=== PATIENT | female | born 1970 | race Caucasian/White ===

== ENCOUNTER 2016-07-13 18:12 | Emergency (ER) | payer OTHER ==
--- NOTE | 2016-07-13 18:39 | EDPHY ---
H & P Time Seen by Provider: 07/13/16 18:33 HPI/ROS: Chief complaint. Left ovary pain HPI. 46-year-old female with left lower quadrant pain for 1 month. She was treated for UTI 1 month ago but has continued to have discomfort and pain and pressure to the left lower quadrant. Several days ago it worsened and so she started Cipro thinking it was another urinary tract infection. However the pain has continued. She was seen by her PCP this afternoon and had an outpatient CT scan which showed a left ovarian cyst or mass and there was some concern for torsion. She had lab work that was performed and on my review was normal. A urinalysis was not performed. She has had no previous similar symptoms. Her last menstrual period was approximately 3 months ago. Patient had a vaginal exam earlier today at her physician's office and showed left adnexal tenderness ROS Constitutional. no fever/chills, no weakness Eyes. no problems with vision ENT. no sore throat, no nasal drainage Cardiovascular. no chest pain Respiratory. no shortness of breath, no cough Abdominal. Left lower quadrant abdominal pain . no problems urinating MS. no calf pain/swelling, no neck/back pain, no joint pain Skin. no rash Lymph. no swollen glands Neuro. no headache, no dizziness, no difficulty walking or with speech Past Medical/Surgical History: Maile-Alexander tear, pneumonia Social History: , nonsmoker, no alcohol Smoking Status: Never smoked Physical Exam: General Appearance: Alert well-developed female moderate distress vital signs are stable Eyes: Pupils equal and round no pallor or injection. ENT, Mouth: Mucous membranes are moist. Respiratory: There are no retractions, lungs are clear to auscultation. Cardiovascular: Regular rate and rhythm. Gastrointestinal: Abdomen is soft with suprapubic and left lower quadrant tenderness. No masses. Neurological: Awake and alert, sensory and motor exams grossly normal. Skin: Warm and dry, no rashes. Musculoskeletal: Neck is supple nontender. Extremities symmetrical, full range of motion. Psychiatric: Patient is oriented X 3, there is no agitation. Constitutional: Initial Vital Signs Temperature (C) 36.6 C 07/13/16 18:15 Heart Rate 62 07/13/16 18:15 Respiratory Rate 14 07/13/16 18:15 Blood Pressure 138/81 H 07/13/16 18:15 O2 Sat (%) 94 07/13/16 18:15 O2 Delivery Mode Room Air Allergies/Adverse Reactions: Sulfa (Sulfonamide Antibiotics) Allergy (Severe, Verified 07/13/16 18:15) Home Medications: Medication Instructions Recorded Albuterol Hfa Anes Only [Proair 2 puffs IH QID PRN 12/24/12 Hfa Anes Only] Herbals/Supplements -Info Only 1 tab PO DAILY 12/24/12 Magnesium 250 mg PO DAILY 12/24/12 Multivitamins [Tab-A-Juani] 1 tab PO DAILY 12/24/12 [place]-3 Fatty Acids [Fish Oil 1000 1,000 mg PO DAILY 12/24/12 mg (OTC)] Pharmacy Completed 12/24/12 12/24/12 Reconciled 12/24/12 12/24/12 Hydrocodone/APAP 5/325 [[place] 1 each PO Q4-6PRN PRN #14 tab 07/13/16 5/325 (*)] Ondansetron Odt [Zofran Odt] 4 mg PO Q4PRN PRN #4 tab 07/13/16 Medical Decision Making - Diagnostics Imaging: Ultrasound of the pelvis tonight reviewed by me and discussed with Dr. Vences shows a 4 x 3 cm left ovarian cyst. Good color flow no evidence for torsion. Uterus and right ovary are normal The patient had an out patient CT of the abdomen elsewhere today that was loaded in our system. I reviewed this Dr. Vences and the only findings are the ovarian cyst Procedures: IV normal saline. Morphine for pain. Zofran for nausea ED Course/Re-evaluation: On re-evaluation at 8:20 a.m. patient is stable and pain-free. The patient and her and I discussed imaging and lab results. We discussed treatment plan including criteria for return importance of follow-up and further evaluation. They expressed understanding and agreement Differential Diagnosis: I considered ectopic , ovarian torsion, ovarian cyst, urinary tract infection - Data Points Laboratory Results: 07/13/16 07/13/16 07/13/16 19:50 19:50 19:20 Beta HCG, Qual NEGATIVE Urine Color YELLOW Urine Appearance CLEAR Urine pH 6.0 (5.0-7.5) Ur Specific [place] 1.009 (1.002-1.030) Urine Protein NEGATIVE (NEGATIVE) Urine Ketones TRACE H (NEGATIVE) Urine Blood NEGATIVE (NEGATIVE) Urine Nitrate NEGATIVE (NEGATIVE) Urine Bilirubin NEGATIVE (NEGATIVE) Urine Urobilinogen NEGATIVE EU EU (0.2-1.0) Ur Leukocyte Esterase NEGATIVE (NEGATIVE) Urine RBC 1-3 /hpf /hpf (0-3) Urine WBC 1-3 /hpf /hpf (0-3) Ur Epithelial Cells NONE SEEN /lpf /lpf (NONE-1+) Urine Mucus TRACE /lpf /lpf (NONE-1+) Ur Culture Indicated? NOT INDICATED (NI) Urine Glucose NEGATIVE (NEGATIVE) Urine Test NEGATIVE Medications Given: Discontinued Medications Sodium Chloride (Ns) 1,000 mls @ 0 mls/hr IV ONCE ONE PRN Reason: Wide Open Stop: 07/13/16 18:58 Last Admin: 07/13/16 19:24 Dose: 1,000 mls Morphine Sulfate (Morphine) 4 mg IVP EDNOW ONE Stop: 07/13/16 18:59 Last Admin: 07/13/16 19:25 Dose: 2 mg Ondansetron HCl (Zofran) 4 mg IVP EDNOW ONE Stop: 07/13/16 18:58 Last Admin: 07/13/16 19:24 Dose: 4 mg Departure - Departure Disposition: Home, Routine, Self-Care Clinical Impression: Left ovarian cyst Condition: Good Instructions: Ovarian Cyst (ED) Additional Instructions: Heat to sore area of low abdomen. Ibuprofen 400 mg every 6 hours. Hydrocodone we in addition as needed for pain. Zofran if needed for nausea. Return for worsening pain, fever. Follow up with Dr. Cee next week for recheck and further evaluation and further ultrasound evaluation Referrals: Maria Guadalupe Cee MD [Primary Care Provider] - 2-3 days, call for appt. Prescriptions: Hydrocodone/APAP 5/325 [[place] 5/325 (*)] 1 each PO Q4-6PRN PRN #14 tab PRN Reason: Pain, Moderate Ondansetron Odt [Zofran Odt] 4 mg PO Q4PRN PRN #4 tab PRN Reason: Nausea/Vomiting, Use 1st
[2016-07-13] MEDS ORDERED: NS 1,000 ML IV ONE (18:57)
[2016-07-13] MEDS ORDERED: ONDANSETRON 4 MG/2 ML VIAL IVP ONE (18:57)
[2016-07-13 19:57] LABS: COLOR YELLOW; LEUKOCYTE ESTERASE,URINE NEGATIVE (NEGATIVE); NITRITE,URINE NEGATIVE (NEGATIVE)
[2016-07-13 20:02] LABS: MUCUS TRACE /lpf (NONE-1+)
[2016-07-13] MEDS ORDERED: HYDROCOD/APAP 5/325 PREPACK#6 BTL TAKEHOME ONE (20:36)
[2016-07-13] MEDS ORDERED: ONDANSETRON 4MG PREPACK#2 BTL TAKEHOME ONE (20:36)
[2016-07-13 20:57] VITALS: BP 100/57; PULSE 56; RESP 16; TEMP 98.4; O2SAT 95
== END 2016-07-13 20:57 | disposition home or self-care (01) ==
DX: N83.202 Unspecified ovarian cyst, left side (principal)
CPT/HCPCS: 96374; J2405

== ENCOUNTER → 2016-08-03 | Outpatient (CLI) | payer OTHER | LOC: BMCIMAGING 11:36 | PROVIDERS: ATTEND Internal Medicine | DX: N83.202 Unspecified ovarian cyst, left side (principal) ==

== ENCOUNTER → 2016-08-16 | Outpatient (CLI) | payer OTHER | LOC: BMCIMAGING 08:22 | DX: Z12.31 Encounter for screening mammogram for malignant neoplasm of breast (principal) | CPT/HCPCS: G0202 ==

== ENCOUNTER → 2017-08-23 | Outpatient (CLI) | payer OTHER | LOC: BMCIMAGING 07:52 | PROVIDERS: ATTEND Internal Medicine | DX: Z12.31 Encounter for screening mammogram for malignant neoplasm of breast (principal) ==

== ENCOUNTER → 2017-11-18 | Outpatient (CLI) | payer OTHER | LOC: BMCIMAGING 10:48 | PROVIDERS: ATTEND Internal Medicine | DX: Z13.820 Encounter for screening for osteoporosis (principal); M85.89 Other specified disorders of bone density and structure, multiple sites; R63.4 Abnormal weight loss; Z78.0 Asymptomatic menopausal state ==

== ENCOUNTER → 2018-06-30 | Outpatient (CLI) | payer OTHER | LOC: BMCIMAGING 10:08 | PROVIDERS: ATTEND Internal Medicine | DX: M25.552 Pain in left hip (principal); M85.88 Other specified disorders of bone density and structure, other site ==

== ENCOUNTER → 2018-09-25 | Outpatient (CLI) | payer OTHER | LOC: BMCIMAGING 07:05 | PROVIDERS: ATTEND Internal Medicine | DX: Z12.31 Encounter for screening mammogram for malignant neoplasm of breast (principal) ==

== ENCOUNTER → 2018-10-03 | Outpatient (CLI) | payer OTHER | LOC: BMCIMAGING 10:47 | PROVIDERS: ATTEND Internal Medicine | DX: R92.8 Other abnormal and inconclusive findings on diagnostic imaging of breast (principal); N60.02 Solitary cyst of left breast ==

== ENCOUNTER 2018-10-08 00:45 | Emergency (ER) | payer OTHER ==
[2018-10-08 00:53] VITALS: BP 111/74
[2018-10-08] MEDS ORDERED: ACETAMINOPHEN 500 MG TAB PO ONE (01:24)
--- NOTE | 2018-10-08 01:24 | EDPHY ---
H & P Stated Complaint: Mech fall onto R wrist. R wrist pain. Time Seen by Provider: 10/08/18 01:06 HPI/ROS: Chief Complaint: Wrist injury HPI: 48-year-old woman had a mechanical fall at 6:00 a.m. Yesterday evening, landing on her outstretched right wrist. She had immediate onset of pain. No prior injuries. No swelling. No numbness or weakness. ROS: 10 systems were reviewed and were negative except those elements noted in the HPI. Social History: No smoking, no alcohol, no recreational drug use Family History: non-contributory Physical Exam: General: Awake, alert, no acute distress Right arm: Shoulder is nontender, full range of motion of pain. Right elbow: Nontender, full range of motion of pain Right wrist:. Patient has some mild tenderness in the anatomic snuffbox and some mild tenderness over the distal radius. No obvious deformity. She is unable to supinate secondary to pain. She has no obvious metacarpal tenderness or deformity. Sensation is intact in the radial, median, and ulnar nerve distribution. Capillary refills less than 2 sec. Skin: No rash - Personal History Current Tetanus/Diphtheria Vaccine: Yes Current Tetanus Diphtheria and Acellular Pertussis (TDAP): Yes Tetanus Vaccine Date: 1997 - Medical/Surgical History Hx Asthma: No Hx Chronic Respiratory Disease: No Hx Cardiac Disease: No Hx Renal Disease: No Hx Cirrhosis: No Hx Alcoholism: No Hx HIV/AIDS: No Hx Splenectomy or Spleen Trauma: No Other PMH: jose manuel gotti tear, PNA - Social History Smoking Status: Never smoked Constitutional: Initial Vital Signs Temperature (C) 36.6 C 10/08/18 00:51 Heart Rate 66 10/08/18 00:51 Respiratory Rate 16 10/08/18 00:51 Blood Pressure 111/74 10/08/18 00:51 O2 Sat (%) 94 10/08/18 00:51 O2 Delivery Mode Room Air Allergies/Adverse Reactions: Sulfa (Sulfonamide Antibiotics) Allergy (Severe, Verified 10/08/18 00:48) Home Medications: Medication Instructions Recorded Albuterol Hfa Anes Only [Proair 2 puffs IH QID PRN 12/24/12 Hfa Anes Only] Herbals/Supplements -Info Only 1 tab PO DAILY 12/24/12 Magnesium 250 mg PO DAILY 12/24/12 Multivitamins [Tab-A-Juani] 1 tab PO DAILY 12/24/12 [place]-3 Fatty Acids [Fish Oil 1000 1,000 mg PO DAILY 12/24/12 mg (OTC)] Venlafaxine Xr [Effexor Xr] 10/08/18 Medical Decision Making - Diagnostics Imaging Results: Right wrist x-ray is negative per my interpretation. Imaging: I viewed and interpreted images myself ED Course/Re-evaluation: 48-year-old woman status post mechanical fall with right wrist pain. No obvious injury on x-ray. This does not rule out however occult fracture. Patient will be placed in a Velcro wrist splint. Referral to hand surgeon for follow-up as an outpatient. Departure - Departure Disposition: Home, Routine, Self-Care Clinical Impression: Wrist sprain Condition: Good Instructions: Wrist Sprain (ED) Additional Instructions: Take ibuprofen, 600 mg every 8 hr. You may alternate with acetaminophen, 1000 mg every 8 hr. Follow up with hand surgeon in 3-4 days if symptoms are not improving. Referrals: Maria Guadalupe Cee MD [Primary Care Provider] - As per Instructions Meño Wilson MD [Medical Doctor] - As per Instructions
== END 2018-10-08 01:54 | disposition home or self-care (01) ==
DX: S63.501A Unspecified sprain of right wrist, initial encounter (principal); W19.XXXA Unspecified fall, initial encounter
CPT/HCPCS: L3807

== ENCOUNTER → 2018-10-29 | Outpatient (CLI) | payer OTHER | LOC: BMCIMAGING 11:47 ==